=== PATIENT | female | born 1950 | race Caucasian/White ===

== ENCOUNTER 2018-05-13 09:54 | Observation (INO) | payer MEDICARE, OTHER ==
[~2018-05-13 09:54] MED LIST: ISOVUE-370 76%-LOCM 1 ML ONE
[2018-05-13] MEDS ORDERED: Fentanyl 100 MCG/2 ML VIAL ONE (10:20)
[2018-05-13 10:21] LABS: #Eosinphils 0.1 thou/uL (0.0-0.7); #Lymphocytes 1.8 thou/uL (1.20-3.40); #Monocytes 0.4 thou/uL (0.11-0.59); #Neutrophils 5.8 thou/uL (1.40-6.50); %Basophils 0.4 % (0.0-1.0); %Eosinophils 1.2 % (0.0-10.0); %Lymphocytes 22.1 % (21.0-51.0); %Monocytes 5.2 % (0.0-10.0); %Neutrophils 71.1 % (42.0-75.0); Hemoglobin 13.9 g/dL (12.0-16.0); Mean Corpuscular HGB CONC 34.4 g/dL (32.0-36.0); Mean Corpuscular Hemoglobin 28.8 pg (27.0-31.0); Mean Corpuscular Volume 83.7 fl (81.0-99.0); Mean Platelet Volume 6.4 fL (7.4-10.4); Platelet Count 250 thou/uL (130-400); RBC Distribution Width 12.6 % (11.5-14.5); Red Blood Cell (RBC) Count 4.82 mill/uL (4.20-5.40); White Blood Cell (WBC) Count 8.2 thou/uL (4.8-10.8)
[2018-05-13 10:27] LABS: INR-International Normal Ratio 1.1; PTT 30.5 SEC (22.9-36.1); Prothrombin Time 14.1 SEC (12.0-14.7)
[2018-05-13] MEDS ORDERED: Fentanyl 100 MCG/2 ML VIAL SLOW IVP SCH (10:30)
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
[2018-05-13 10:48] LABS: ALT (SGPT) 17 U/L (8-55); AST (SGOT) 37 U/L (5-34); Albumin 4.1 g/dL (3.4-4.8); Alkaline Phosphatase 72 U/L (40-150); Anion Gap 15 mmol/L (10-20); BUN (Urea Nitrogen) 10 mg/dL (9.8-20.1); Bilirubin, Total 0.5 mg/dL (0.2-1.2); Calc. Creatinine Clearance 0 mL/min (70-130); Calcium 9.6 mg/dL (7.8-10.44); Carbon Dioxide 22 mmol/L (23-31); Chloride 108 mmol/L (98-107); Estimated GFR-MDRD 73; Globulin 2.8 g/dL (2.4-3.5); Glucose 86 mg/dL (80-115); Lipase 51 U/L (8-78); Potassium 4.2 mmol/L (3.5-5.1); Protein, Total 6.9 g/dL (6.0-8.3); Sodium 141 mmol/L (136-145)
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
[2018-05-13] MEDS ORDERED: Bisacodyl 10 MG SUPP PR PRN (15:55)
[2018-05-13] MEDS ORDERED: Dextrose 5% in Water 1,000 ML IV PRN (15:55)
[2018-05-13] MEDS ORDERED: Dextrose 50% Abboject 50 ML SYRINGE SLOW IVP PRN (15:55)
[2018-05-13] MEDS ORDERED: Ibuprofen 600 MG TAB PO SCH (16:00)
[2018-05-13] MEDS ORDERED: traMADol HCl 50 MG TAB PO SCH (16:00)
[2018-05-13] MEDS ORDERED: Acetaminophen 500 MG TAB PO SCH (16:00)
[2018-05-13 17:50] VITALS: BMI 22.4
[2018-05-13] MEDS ORDERED: Prevnar 13-Val Conj/PF 0.5 ML SYRINGE IM ONE (18:15)
[2018-05-13] MEDS: Acetaminophen 500 MG TAB PO SCH (18:39)
[2018-05-13] MEDS: traMADol HCl 50 MG TAB PO SCH (18:40)
[2018-05-13] MEDS: Ibuprofen 600 MG TAB PO SCH (18:43)
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
[2018-05-13] MEDS: Senokot S 8.6-50 MG TAB PO SCH (21:34)
[2018-05-13] MEDS: Famotidine 20 MG TAB PO SCH (21:34)
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
[2018-05-14] MEDS: traMADol HCl 50 MG TAB PO SCH ×5 (00:06→23:24)
[2018-05-14] MEDS: Acetaminophen 500 MG TAB PO SCH ×5 (00:06→23:24)
[2018-05-14] MEDS: Ibuprofen 600 MG TAB PO SCH (00:45)
[2018-05-14] MEDS ORDERED: Montelukast Sodium 10 mg Tablet PO PRN (08:10)
[2018-05-14] MEDS: Polyethylene Glycol 3350 17 GM Packet PO SCH (08:45)
[2018-05-14] MEDS: Senokot S 8.6-50 MG TAB PO SCH ×2 (08:45→21:42)
[2018-05-14] MEDS: Famotidine 20 MG TAB PO SCH ×2 (08:45→21:42)
[2018-05-14] MEDS: Enoxaparin Sodium 40 MG/0.4 ML SYRINGE SC SCH (08:46)
[2018-05-14] MEDS: traMADol HCl 50 MG TAB PO PRN (08:47)
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
[2018-05-14] MEDS: Cyclobenzaprine 10 MG TAB PO PRN (21:42)
[2018-05-15] MEDS: Acetaminophen 500 MG TAB PO SCH ×4 (05:31→23:25)
[2018-05-15] MEDS: traMADol HCl 50 MG TAB PO SCH ×4 (05:31→23:25)
[2018-05-15] MEDS: Famotidine 20 MG TAB PO SCH ×2 (08:52→19:59)
[2018-05-15] MEDS: Polyethylene Glycol 3350 17 GM Packet PO SCH (08:52)
[2018-05-15] MEDS: Enoxaparin Sodium 40 MG/0.4 ML SYRINGE SC SCH (08:53)
[2018-05-15] MEDS: Senokot S 8.6-50 MG TAB PO SCH ×2 (08:53→19:59)
[2018-05-15] MEDS: traMADol HCl 50 MG TAB PO PRN (09:52)
[2018-05-15] MEDS: Cyclobenzaprine 10 MG TAB PO PRN ×2 (09:52→20:12)
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
[2018-05-16] MEDS: traMADol HCl 50 MG TAB PO SCH ×3 (05:36→14:00)
[2018-05-16] MEDS: Acetaminophen 500 MG TAB PO SCH ×3 (05:36→14:00)
[2018-05-16] MEDS: traMADol HCl 50 MG TAB PO PRN (08:48)
[2018-05-16] MEDS: Famotidine 20 MG TAB PO SCH (08:48)
[2018-05-16] MEDS: Senokot S 8.6-50 MG TAB PO SCH (08:50)
[2018-05-16] MEDS: Cyclobenzaprine 10 MG TAB PO PRN (08:50)
[2018-05-16] MEDS: Enoxaparin Sodium 40 MG/0.4 ML SYRINGE SC SCH (08:50)
[2018-05-16] MEDS: Polyethylene Glycol 3350 17 GM Packet PO SCH (08:51)
[2018-05-16 11:04] VITALS: BP 106/71; TEMP 99.1
== END 2018-05-16 14:33 ==
LOC: ERS 09:54 → SURG A 16:19
PROVIDERS: ADMIT Specialist; ATTEND Specialist
DX: S22.081A Stable burst fracture of T11-T12 vertebra, initial encounter for closed fracture (principal); G89.11 Acute pain due to trauma; M19.90 Unspecified osteoarthritis, unspecified site; G43.909 Migraine, unspecified, not intractable, without status migrainosus; Z79.1 Long term (current) use of non-steroidal anti-inflammatories (NSAID); V43.52XA Car driver injured in collision with other type car in traffic accident, initial encounter
CPT/HCPCS: 71260; 72125; 72128; 74177; 80053; 83690; 85025; 85610; 85730; 86850; 86900; 86901; 93005; 94760; 96372 ×3; 96374; 96375; 97116 ×2; 97139 ×3; 97530; 97535; 99285; G0378 ×2; G8978; G8979; G8987; G8988; L0639; 36415; G0390; J1650; J2270; J3010